=== PATIENT | male | born 1945 | race Caucasian/White ===

== ENCOUNTER 2021-04-24 14:07 | Outpatient (CLI) | payer MEDICARE ==
[2021-04-25 03:28] LABS: SARS-CoV-2 PCR by NAA Not Detected (NotDetected)
== END 2021-04-24 14:08 | disposition home or self-care (01) ==
LOC: CSHLAB 14:07
PROVIDERS: ATTEND Plastic Surgery
DX: Z20.822 Contact with and (suspected) exposure to COVID-19 (principal); C43.4 Malignant melanoma of scalp and neck
CPT/HCPCS: 70491; 82565; U0003; U0005

== ENCOUNTER 2021-04-24 14:41 | Outpatient (CLI) | payer MEDICARE | END 2021-04-24 14:42 | disposition home or self-care (01) | LOC: CSHCT 14:41 | PROVIDERS: ATTEND Otolaryngology Otolaryngic Allergy | DX: C43.4 Malignant melanoma of scalp and neck (principal) | CPT/HCPCS: 70491; 82565 ==